=== PATIENT | female | born 1970 | race African-American/Black ===

== ENCOUNTER 2017-10-02 04:30 | Emergency (ER) | payer MEDICARE, MEDICAID ==
[~2017-10-02] VITALS: Ht 167.6 cm; Wt 107.0 kg
[2017-10-02] MEDS ORDERED: ACETAMINOPHEN 325MG TABLET PO ONE (06:45)
[2017-10-02] MEDS ORDERED: IBUPROFEN 400MG TABLET PO ONE (07:00)
[2017-10-02] MEDS ORDERED: ACETAMINOPHEN WITH CODEINE 300/30MG TABLET PO ONE (07:00)
[2017-10-02 08:40] VITALS: BP 156/94
== END 2017-10-02 09:03 | disposition home or self-care (01) ==
LOC: ER 06:58
DX: R51 Headache (principal); I10 Essential (primary) hypertension; M32.9 Systemic lupus erythematosus, unspecified; M79.7 Fibromyalgia; Z87.891 Personal history of nicotine dependence; Z90.89 Acquired absence of other organs; Z98.890 Other specified postprocedural states
CPT/HCPCS: 70450; 99284